=== PATIENT | male | born 2000 | race Caucasian/White ===

== ENCOUNTER 2018-04-24 16:24 | Emergency (ER) | payer OTHER ==
[~2018-04-24] VITALS: Ht 170.1 cm; Wt 72.6 kg
[2018-04-24] MEDS ORDERED: VISTARIL25 MG PO (16:31)
[2018-04-24] MEDS ORDERED: ABILIFY10 MG PO (16:31)
== END 2018-04-24 17:55 | disposition home or self-care (01) ==
LOC: ED 16:24
DX: S93.491A Sprain of other ligament of right ankle, initial encounter (principal); F17.200 Nicotine dependence, unspecified, uncomplicated; Z79.899 Other long term (current) drug therapy; X58.XXXA Exposure to other specified factors, initial encounter; Y93.72 Activity, wrestling; Y92.89 Other specified places as the place of occurrence of the external cause; Y99.8 Other external cause status

== ENCOUNTER 2018-05-30 23:41 | Emergency (ER) | payer OTHER ==
[~2018-05-30] VITALS: Ht 170.1 cm; Wt 79.4 kg
[~2018-05-30 23:41] MED LIST: ABILIFY10 MG PO; VISTARIL25 MG PO
[2018-05-30] MEDS ORDERED: ABILIFY MAINTE400 MG IM (23:46)
[2018-05-31 02:45] LABS: BASO % 0.3 % (0.0-1.0); EOS # 0.2 10*3/uL (0.0-0.4); EOS % 3.3 % (1.0-4.0); HEMATOCRIT 40.8 % (42.0-52.0); HEMOGLOBIN 13.6 g/dl (14.0-18.0); LYMPH # 2.7 10*3/uL (1.3-4.4); LYMPH % 42.1 % (27.0-41.0); MEAN CELL VOLUME 90.3 fl (80.0-94.0); MEAN CORPUSCULAR HGB 30.1 pg (27.0-31.0); MEAN CORPUSCULAR HGB CONC 33.3 g/dl (33.0-37.0); MEAN PLATELET VOLUME 10.5 fl (9.6-12.3); MONO # 0.4 10*3/uL (0.1-1.0); MONO % 6.5 % (3.0-9.0); NEUT % 47.6 % (47.0-73.0); PLATELET COUNT AUTOMATED 190 10*3/uL (130-400); RED BLOOD COUNT 4.52 10*6/uL (4.50-5.90); RED CELL DISTRI WIDTH 12.7 % (0-14.5); WHITE BLOOD COUNT 6.3 10*3/uL (4.8-10.8)
[2018-05-31 02:56] LABS: ACT PARTIAL THROMBO TIME 25.1 SECONDS (20.8-31.5)
[2018-05-31 03:02] LABS: ALBUMIN 3.3 gm/dl (3.1-4.5); ALKALINE PHOSPHATASE 60 U/L (45-117); BUN 13 mg/dl (7-24); CHLORIDE 109 mmol/L (98-107); CREATININE 0.95 mg/dL (0.70-1.30); POTASSIUM 3.9 mmol/L (3.5-5.1); SGOT/AST 10 IU/L (3-35); SGPT/ALT 17 U/L (12-78); SODIUM 142 mmol/L (136-145); TOTAL PROTEIN 5.7 gm/dL (6.4-8.2)
[2018-05-31 03:03] LABS: TROPONIN I < 0.015 ng/ml (<0.045)
== END 2018-05-31 03:14 | disposition home or self-care (01) ==
LOC: ED 23:41
PROVIDERS: Student in an Organized Health Care Education/Training Program
DX: M54.2 Cervicalgia (principal); R51 Headache; F17.200 Nicotine dependence, unspecified, uncomplicated